=== PATIENT | male | born 1965 | race Caucasian/White ===

== ENCOUNTER 2020-07-23 08:00 | Outpatient (CLI) | payer OTHER ==
--- NOTE | 2020-07-23 13:19 | XRAY Report ---
PROCEDURE: Chest 2 View X-Ray INDICATIONS: CHEST PAIN, LEFT TECHNIQUE: 2 view(s) of the chest. COMPARISON: None. FINDINGS: Surgical changes and devices: None. Lungs and pleura: No pleural effusions or pneumothorax. Lungs are clear. Mediastinum: Mediastinal contours are normal. Heart size is normal. Bones and chest wall: No suspicious bony abnormalities. Soft tissues appear unremarkable. IMPRESSION: Normal for age, source of current symptoms is not seen. Reviewed by: Chris Mueller MD on 07/23/2020 1:17 PM PST Approved by: Chris Mueller MD on 07/23/2020 1:17 PM PST Station ID: [id number]
== END 2020-07-23 23:59 ==
LOC: DI.S 08:00
PROVIDERS: ATTEND Physician Assistant
DX: R07.89 Other chest pain (principal)

== ENCOUNTER 2020-07-23 13:33 | Emergency (ER) | payer OTHER ==
--- NOTE | 2020-07-23 14:06 | ED Physician Documentation ---
History of Present Illness - Stated complaint Stated Complaint: SIDE PX - Chief complaint Chief Complaint: Abd Pain - History obtained from History obtained from: Patient - History of Present Illness Timing: How many days ago (4) Pain level max: 5 Pain level now: 3 - Additonal information Additional information: 55-year-old male with left flank/rib pain. Started about 4 days ago. 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 The day before the pain had started he was planting several things in his yard and lifting heavy objects. Worse with movement, better with rest. No nausea or vomiting. No diarrhea. No constipation. No shortness of breath. No cough. Review of Systems Constitutional: denies: Fever, Chills Nose: denies: Rhinorrhea / runny nose, Congestion Throat: denies: Sore throat Cardiac: denies: Palpitations Respiratory: denies: Dyspnea GI: denies: Vomiting, Diarrhea Skin: denies: Rash Musculoskeletal: denies: Neck pain, Back pain Neurologic: denies: Headache PD PAST MEDICAL HISTORY - Past Medical History Past Medical History: No - Present Medications Home Medications: Ambulatory Orders Medication Instructions Recorded Confirmed No Known Home Medications 07/23/20 07/23/20 - Allergies Allergies/Adverse Reactions: Allergies Allergy/AdvReac Type Severity Reaction Status Date / Time No Known Drug Allergies Allergy Verified 07/23/20 13:38 - Living Situation Living Arrangement: reports: At home - Family History Family history: reports: None PD ED PE NORMAL - Vitals Vital signs reviewed: Yes - General General: Alert and oriented X 3, No acute distress, Well developed/nourished - HEENT HEENT: Moist mucous membranes - Neck Neck: Supple, no meningeal sign - Cardiac Cardiac: RRR, Strong equal pulses - Respiratory Respiratory: No respiratory distress, Clear bilaterally - Abdomen Abdomen: Normal bowel sounds, Soft, Non tender, Non distended - Back Back: No CVA TTP, No spinal TTP - Derm Derm: Warm and dry - Extremities Extremities: No deformity - Neuro Neuro: Alert and oriented X 3 - Psych Psych: Normal mood, Normal affect - Free text exam Free text exam: Tender to palpation over the tip of the 11th and 12th floating ribs. Point tenderness. Normal skin. No ecchymosis. Tenderness is on the left side. no crepitus Results - Vitals Vitals: Vital Signs - 24 hr 07/23/20 07/23/20 13:38 14:20 Temperature 37.1 C Heart Rate 86 78 Respiratory 18 16 Rate Blood Pressure 190/104 H O2 Saturation 97 97 Oxygen O2 Source Room air - EKG (time done) 1201 Rate: Rate (enter#) (74) Rhythm: NSR [place]: Normal Intervals: Normal [place] QRS: Normal Ischemia: Normal ST segments - Labs Labs: Laboratory Tests 07/23/20 07/23/20 07/23/20 14:25 14:25 14:25 WBC 5.6 RBC 4.68 L Hgb 15.3 Hct 44.1 MCV 94.2 H MCH 32.7 H MCHC 34.7 RDW 12.2 Plt Count 239 MPV 9.4 Neut # (Auto) 4.4 Lymph # (Auto) 0.8 L [place] # (Auto) 0.3 Eos # (Auto) 0.0 Baso # (Auto) 0.0 Absolute Nucleated RBC 0.00 Nucleated RBC % 0.0 Sodium 137 Potassium 3.7 Chloride 101 Carbon Dioxide 24 Anion Gap 12.0 BUN 10 Creatinine 0.8 Estimated GFR (MDRD) 101 Glucose 134 H Calcium 9.5 Total Bilirubin 1.1 H AST 28 ALT 22 Alkaline Phosphatase 35 L Troponin I High Sens 5.7 Total Protein 7.9 Albumin 4.5 Globulin 3.4 Albumin/Globulin Ratio 1.3 Lipase 31 - Rads (name of study) cxr Radiology: Prelim report reviewed, EMP read contemporaneously, See rad report (Normal for age, source of current symptoms is not seen. ) PD MEDICAL DECISION MAKING - ED course Complexity details: reviewed results, re-evaluated patient, considered differential (No ST elevation [place], no aortic dissection, no PE, no tension p neumothorax, no aortic aneurysm), d/w patient ED course: Patient with chest wall tenderness. No evidence of acute coronary syndrome, pulmonary embolus, aortic dissection. No acute findings on EKG. We will continue Motrin and Tylenol as needed for pain and have him follow-up with his doctor for further care. Patient counseled regarding signs and symptoms for which I believe and urgent re-evaluation would be necessary. Patient with good understanding of and agreement to plan and is comfortable going home at this time This document was made in part using voice recognition software. While efforts are made to proofread this document, sound alike and grammatical errors may occur. EKG and CXR done at walk in clinic earlier today. Departure - Departure Disposition: Home, Self Care Clinical Impression: Chest wall pain Condition: Good Instructions: ED Strain Chest Wall Follow-Up: your,doctor in 1 week [Other] Comments: Follow up with your doctor in 1 week. Your chest xray, EKG and blood work do no show any acute abnormalities today. You should have a cardiac stress test with your doctor and have your blood pressure rechecked to see if you need medication for this. You can continue Motrin and Tylenol as needed for pain. This should improve over the next week or so
[2020-07-23 14:30] LABS: BASOPHILS % (AUTO) 0.7 %; EOSINOPHILS % (AUTO) 0.2 %; HCT - HEMATOCRIT 44.1 % (42.0-52.0); HGB - HEMOGLOBIN 15.3 g/dL (14.0-18.0); LYMPHOCYTES # (AUTO) 0.8 10^3/uL (1.5-3.5); LYMPHOCYTES % (AUTO) 14.8 %; MEAN CORPUSCULAR HEMOGLOBIN 32.7 pg (27.0-31.0); MEAN CORPUSCULAR HGB CONC 34.7 g/dL (32.0-36.0); MEAN CORPUSCULAR VOLUME 94.2 fL (80.0-94.0); MEAN PLATELET VOLUME 9.4 fL (7.4-11.4); MONOCYTES # (AUTO) 0.3 10^3/uL (0.0-1.0); MONOCYTES % (AUTO) 5.7 %; NEUTROPHILS # (AUTO) 4.4 10^3/uL (1.5-6.6); NEUTROPHILS % (AUTO) 78.4 %; PLT - PLATELET COUNT 239 10^3/uL (130-450); RED BLOOD COUNT 4.68 10^6/uL (4.70-6.10); RED CELL DISTRIBUTION WIDTH 12.2 % (12.0-15.0); WHITE BLOOD COUNT 5.6 x10^3/uL (4.8-10.8)
[2020-07-23 14:48] LABS: ALBUMIN 4.5 g/dL (3.2-5.5); ALBUMIN/GLOBULIN RATIO 1.3 (1.0-2.2); BILIRUBIN,TOTAL 1.1 mg/dL (0.2-1.0); CALCIUM 9.5 mg/dL (8.5-10.3); CREATININE 0.8 mg/dL (0.6-1.2); POTASSIUM 3.7 mmol/L (3.5-5.0); TOTAL PROTEIN 7.9 g/dL (6.7-8.2)
[2020-07-23 15:14] VITALS: BP 179/107
== END 2020-07-23 15:14 | disposition home or self-care (01) ==
LOC: ED 13:33
DX: R07.89 Other chest pain (principal)
CPT/HCPCS: 36415; 80053; 83690; 84484; 85025; 99284